=== PATIENT | male | born 1985 | race African-American/Black ===

== ENCOUNTER 2018-06-14 19:27 | Emergency (ER) | payer OTHER ==
[~2018-06-14] VITALS: Ht 182.9 cm; Wt 86.6 kg
[2018-06-14 19:39] VITALS: BP 122/77
[2018-06-14] MEDS ORDERED: TETRACAINE HCL 0.5% OPTH(EYE) SOLN 4ML LEFTEYE ONE (21:30)
[2018-06-14] MEDS ORDERED: FLUORESCEIN SOD 1 MG TEST STRIP LEFTEYE ONE (21:30)
== END 2018-06-14 23:00 | disposition home or self-care (01) ==
LOC: ER 19:27
DX: S05.02XA Injury of conjunctiva and corneal abrasion without foreign body, left eye, initial encounter (principal); X58.XXXA Exposure to other specified factors, initial encounter; Y93.89 Activity, other specified; Y92.810 Car as the place of occurrence of the external cause; Y99.8 Other external cause status

== ENCOUNTER 2024-10-25 11:57 | Emergency (ER) | payer MEDICAID, OTHER ==
[~2024-10-25] VITALS: Ht 185.4 cm; Wt 98.9 kg
[2024-10-25 12:58] VITALS: BP 113/77; PULSE 68; RESP 19; TEMP 97.4; O2SAT 98
[2024-10-25] MEDS: methylPREDNISolone SOD SUCC 125 MG/2 ML VL IM ONE (13:57)
[2024-10-25] MEDS: KETOROLAC TROMETH 60MG/2ML VIAL IM ONE (13:57)
[2024-10-25] MEDS ORDERED: METH-1181 PO (14:06)
[2024-10-25] MEDS ORDERED: NAP500T PO (14:06)
--- NOTE | 2024-10-25 14:06 | ED.PDOC ---
Back pain HPI HPI Comments 39-year-old male with no MHx presents with a chief complaint of atraumatic right lower back pain that radiates down the posterior right lower extremity x2 days No trauma no injury. Reports symptoms started at night Aggravated with movement and laying on the affected side Able to get minimal relief with [id number] Tylenol and ibuprofen Denies any red flags Chief Complaint: Back Pain Time Seen by MD: 12:07 Primary Care Provider: NONE Reviewed Notes: Nurses Notes, Medications, Allergies Allergies: Coded Allergies: NO KNOWN ALLERGIES (Unverified , 06/14/18) Information Source: Patient Mode of Arrival: Ambulatory Past Medical History PAST MEDICAL HISTORY: Denies Surgical History: Denies all surgeries Family History Family History: Reviewed,noncontributory to illness, Unknown Social History Smoker: Non-Smoker Alcohol: Denies ETOH Use Drugs: Denies Drug Use Lives In: Home All Other Systems: Reviewed and Negative (Per HPI) Physical Exam General Appearance: No Apparent Distress, Normal HEENT: Normal ENT Inspection, Pharynx Normal, TMs Normal Neck: Full Range of Motion, Non-Tender, Normal, Normal Inspection Respiratory: Chest Non-Tender, Lungs Clear, No Accessory Muscle Use, No Respiratory Distress, Normal Breath Sounds Cardiovascular: No Murmur, No Gallop, Regular Rate/Rhythm Breast Exam: Deferred Gastrointestinal: No Organomegaly, Non Tender, No Pulsatile Mass, Normal Bowel Sounds, Soft Genitalia: Deferred Pelvic: Deferred Rectal: Deferred Extremities: No calf tenderness, Normal capillary refill, Normal inspection, Normal range of motion, Non-tender, No pedal edema Musculoskeletal : Extremity Location: Back (No gross abnormality. RSLRT positive) Apperance: Normal Neurologic: Alert, No Motor Deficits, Normal Affect, Normal Mood, No Sensory Deficits Cerebellar Function: Normal Reflexes: Normal Skin: Dry, Normal Color, Warm Lymphatic: No Adenopathy Was a procedure done? Was a procedure done?: No Back Pain Differential Dx Differential Diagnosis: Musculoskeletal Pain X-Ray, Labs, Meds, VS Vital Signs Date Time Temp Pulse Resp B/P (MAP) Pulse Ox O2 Delivery O2 Flow Rate FiO2 10/25/24 12:58 97.4 68 19 113/77 (89) 98 97.4 10/25/24 12:07 97.4 68 19 113/77 (89) 98 97.4 Current Medications Medications (Trade) Dose Ordered Sig/Adelfo Route Start Time Stop Time Status Last Admin Ketorolac Tromethamine (Toradol Injection) 60 mg ONCE ONCE IM 10/25/24 14:00 10/25/24 14:01 10/25/24 13:57 Methylprednisolone Sodium Succinate (Solu Medrol) 125 mg ONCE ONCE IM 10/25/24 14:00 10/25/24 14:01 10/25/24 13:57 X-Ray, Labs, Meds, VS Comment Given patient's history and exam, findings are consistent with sciatica. The patient is nontoxic non ill-appearing. Vital signs stable within acceptable limits. Positive straight leg raise test on exam tenderness to the buttock consistent with sciatica. No vertebral point tenderness noted over the T or L- spine. No paraspinal muscle tenderness noted. No femur or IV drug use. Advised patient to try to take alternating ibuprofen and Tylenol to help the inflammation of the sciatic nerve and surrounding tissue and should try to do low back stretches but also trying to rest and avoid excessive sitting in bed in On reassessment the patient's symptoms improved in the patient with a able to ambulate without assistive devices. The patient will follow up with PMD to see if his symptoms fernando. An MRI may be needed if the symptoms worsened I do not improve over time. Patient agrees and understands the plan Time of 1ST Reevaluation: 14:02 Reevaluation 1ST: Improved Patient Education/Counseling: Diagnosis, Treatment Family Education/Counseling: Diagnosis, Treatment Departure 1 Departure Time of Disposition: 14:05 Impression: Primary Impression: Sciatica Qualified Codes: M54.31 - Sciatica, right side Disposition: HOME / SELF CARE / HOMELESS Condition: Stable e-Prescriptions Naproxen (NAPROSYN TABLET) 500 Mg Tb 1 TAB PO BIDPC for 10 Days, #20 TAB 0 Refills Prov: MARY JACINTO TISSUE TECHNICIAN 10/25/24 Methocarbamol (Methocarbamol) 500 Mg Tab 500 MG PO Q8HP PRN for 10 Days, #30 TAB 0 Refills Prov: MARY JACINTO TISSUE TECHNICIAN 10/25/24 Discharged With: Self Critical Care Note Critical Care Time?: No Stability Stability form required: No Heart Score Heart Score: Heart Score Response (Comments) Value History N/A 0 EKG N/A 0 Age N/A 0 Risk Factors N/A 0 Troponin N/A 0 Total 0 OPHELIA,MARY F TISSUE TECHNICIAN Oct 25, 2024 14:06
== END 2024-10-25 14:13 | disposition home or self-care (01) ==
LOC: ER 12:03
DX: M54.41 Lumbago with sciatica, right side (principal)
CPT/HCPCS: 96372; 99284; J1885; J2919